=== PATIENT | female | born 1990 | race Caucasian/White ===

== ENCOUNTER 2018-08-17 23:17 | Emergency (ER) | payer OTHER ==
[~2018-08-17] VITALS: Ht 154.9 cm; Wt 94.3 kg
[~2018-08-17 23:17] MED LIST: PRENATABS RX T1 EACH PO; TYLENOL325 MG PO
== END 2018-08-18 01:12 | disposition home or self-care (01) ==
LOC: ED 23:17
DX: O21.0 Mild hyperemesis gravidarum (principal); O99.331 Smoking (tobacco) complicating pregnancy, first trimester; F17.200 Nicotine dependence, unspecified, uncomplicated; Z88.8 Allergy status to other drugs, medicaments and biological substances; Z3A.12 12 weeks gestation of pregnancy
CPT/HCPCS: 80053; 81001; 85025; 96361; 96374; 99283-25; J1200; J7030

== ENCOUNTER 2018-12-19 20:32 | Emergency (ER) | payer OTHER ==
[~2018-12-19] VITALS: Ht 154.9 cm; Wt 92.5 kg
[2018-12-19] MEDS ORDERED: PRENATAL 19 TA1 EAC1 PO (20:46)
[2018-12-19] MEDS ORDERED: ONDANSETRON ODT8 MG PO (20:47)
--- NOTE | 2018-12-20 21:34 | EKG ---
[facility] [address] [facility] [place] [address] Signed Normal sinus rhythm Normal ECG No previous ECGs available Confirmed by AMI MENDES MD ([id number]) on 12/20/2018 9:34:16 PM Electronically Signed By: AMI MENDES MD 12/20/18 2134 PATIENT NAME: KRISTALPANFILONITZAWAYNE BAR Electrocardiogram DATE OF : 89 PHYSICIAN: AMI MENDES MD REPORT #: [id number] REPORT IS CONFIDENTIAL AND NOT TO BE RELEASED WITHOUT AUTHORIZATION
== END 2018-12-19 22:31 | disposition home or self-care (01) ==
LOC: ED 20:32
DX: O99.513 Diseases of the respiratory system complicating pregnancy, third trimester (principal); J06.9 Acute upper respiratory infection, unspecified; F17.200 Nicotine dependence, unspecified, uncomplicated; Z88.6 Allergy status to analgesic agent; Z79.899 Other long term (current) drug therapy; Z3A.31 31 weeks gestation of pregnancy
CPT/HCPCS: 71046; 93005; 93010; 99283-25

== ENCOUNTER 2023-08-06 10:20 | Emergency (ER) | payer OTHER ==
[~2023-08-06] VITALS: Ht 154.9 cm; Wt 105.4 kg
[~2023-08-06 10:20] MED LIST changes: +ONDANSETRON ODT8 MG PO; +PRENATAL 19 TA1 EAC1 PO
[2023-08-06] MEDS ORDERED: ALLERGY25 MG PO (10:46)
[2023-08-06] MEDS ORDERED: VENTOLIN HFA18 GM INH (11:12)
[2023-08-06] MEDS ORDERED: EPIPEN 2-P0.3 MG/0.3 IM (11:39)
[2023-08-06 12:23] VITALS: BP 129/64
== END 2023-08-06 12:21 | disposition home or self-care (01) ==
LOC: ED 10:20
DX: T78.3XXA Angioneurotic edema, initial encounter (principal); F17.200 Nicotine dependence, unspecified, uncomplicated; Z88.6 Allergy status to analgesic agent; Z91.018 Allergy to other foods; X58.XXXA Exposure to other specified factors, initial encounter
CPT/HCPCS: 96372; 99283; J0171; J1100; Q0163